=== PATIENT | female | born 1980 | race Caucasian/White ===

== ENCOUNTER → 2016-11-02 | Outpatient (CLI) | payer BC ==
[~2016-11-02] MED LIST: IBUPROFEN800 MG; LORTAB 7.51 TAB; NO MEDICATIONS; ROBAXIN500 MG
--- NOTE | ~2016-11-02 | CR63 ---
[facility]. [facility] A Service of [facility] & [facility] RADIOLOGY TEXT RESULTS PATIENT: ALIREZA ALCAZAR LOCATION: [facility] : 78 UNIT #: [id number] AGE: [address]: NELDA DOMINGUEZ APR SEX: F ORDER DR: [id number] [address] [id number] [id number] O MR#: [id number] Acc #: [id number] NAME: ALIREZA ALACZAR : 1980 SEX: F STUDY DATE/TIME: 11/02/2016 16:12 UNIT: [facility] ROOM: STUDY DESCRIPTION: CR Chest 2 View Attending Physician: Nelda Dominguez Aprn Referring Physician: Nelda Dominguez Aprn Ordering Physician: Nelda Dominguez Aprn Primary Care Physician: Nelda Dominguez Aprn MEDICAL IMAGING REPORT This report is preliminary unless electronic signature is present. EXAM Two-view chest, 11/02/16. HISTORY 36-year-old female with chest pain and cough for 3 weeks. Left-sided rib pain. COMPARISON Chest, 05/30/13. FINDINGS Two views of the chest demonstrate clear lungs. No pleural effusion or pneumothorax. Heart size and mediastinum are normal. Pulmonary vasculature normal. No acute bony abnormality. IMPRESSION No acute chest findings. Dictated by... Dao Tovar M.D. THIS IS AN ELECTRONICALLY VERIFIED REPORT Dao Tovar M.D. at 11/03/2016 9:10 AM Darrick TD: 11/02/2016 21:43 JOB #: [id number] MEDICAL IMAGING REPORT Page 1 of 1
== END | disposition home or self-care (01) ==
LOC: SRAD 15:58
DX: R07.1 Chest pain on breathing (principal)
CPT/HCPCS: 71020